=== PATIENT | male | born 1970 | race Caucasian/White ===

== ENCOUNTER 2020-09-20 23:56 | Inpatient (IN) | payer OTHER ==
[2020-09-21 00:26] VITALS: BMI 23.2
[2020-09-21] MEDS ORDERED: MAG HYDROX/AL HYDROX/SIMETH 30 ML UNIT-DOSE CUP PO PRN (00:29)
[2020-09-21] MEDS ORDERED: METHOCARBAMOL 500 MG TABLET PO PRN (00:29)
[2020-09-21] MEDS ORDERED: ACETAMINOPHEN 325 MG TABLET (FP) PO PRN ×2 (00:29)
[2020-09-21] MEDS ORDERED: MENTHOL/PHENOL 1 EACH UD MM PRN (00:29)
[2020-09-21] MEDS ORDERED: ONDANSETRON *ODT* 4 MG TABLET SL PRN (00:29)
[2020-09-21] MEDS ORDERED: IBUPROFEN 400 MG TABLET (FP) PO PRN (00:29)
[2020-09-21] MEDS ORDERED: MAGNESIUM HYDROX 2400MG/30ML ORAL SUSPENSION 30 ML CUP PO PRN (00:29)
[2020-09-21] MEDS ORDERED: BISMUTH SUBSALICYLATE 524 MG/30 ML PO PRN (00:29)
[2020-09-21] MEDS ORDERED: MAGNESIUM CITRATE 300 ML BOTTLE PO PRN (00:29)
[2020-09-21] MEDS ORDERED: diazePAM 5 MG TABLET PO PRN (00:30)
[2020-09-21] MEDS ORDERED: METOPROLOL TARTRATE 50 MG TABLET (FP) PO ONE (01:15)
[2020-09-21] MEDS: hydrOXYzine PAMOATE 25 MG CAPSULE (FP) PO PRN ×2 (01:41→10:18)
[2020-09-21] MEDS: diazePAM 5 MG TABLET PO SCH ×4 (06:18→22:23)
[2020-09-21] MEDS ORDERED: PRENATAL VITAMINS W/ FOLIC ACID TABLET (FP) PO SCH (10:00)
[2020-09-21 11:22] LABS: ALBUMIN 3.3 g/dl (3.4-5.0); HEMATOCRIT 47.6 % (35.4-49); HEMOGLOBIN 16.5 GM/dL (11.7-16.9); MCH 31.5 pg (25.7-33.7); MCHC 34.7 g/dl (32.0-35.9); MEAN CELL VOLUME 90.7 fl (80-96); MEAN PLT VOLUME 7.9 fl (7.5-11.1); PLATELET COUNT 120 10^3/uL (134-434); RBC 5.24 M/mm3 (4.00-5.60); RDW 15.2 % (11.9-15.9); WHITE BLOOD COUNT 7.3 K/mm3 (4.0-10.0)
[2020-09-21 11:24] LABS: BLOOD UREA NITROGEN 11.6 mg/dL (7-18); CALCIUM 8.5 mg/dL (8.5-10.1)
[2020-09-21 11:28] LABS: BILIRUBIN,TOTAL 1.2 mg/dL (0.2-1)
[2020-09-21 11:29] LABS: TOT PROT 6.4 g/dl (6.4-8.2)
[2020-09-21] MEDS ORDERED: POTASSIUM CHLORIDE ORAL LIQUID 20 MEQ/15 ML PO ONE (13:00)
[2020-09-21] MEDS ORDERED: POTASSIUM CHLORIDE ORAL LIQUID 20 MEQ/15 ML PO SCH (22:00)
[2020-09-21] MEDS ORDERED: MELATONIN 5 MG TABLETS PO SCH (22:00)
[2020-09-21] MEDS ORDERED: THIAMINE HCL 100 MG TABLET (FP) PO SCH (22:00)
[2020-09-22] MEDS ORDERED: diazePAM 5 MG TABLET PO SCH (06:00)
[2020-09-22 07:41] VITALS: BP 136/96; PULSE 76; TEMP 97
[2020-09-22 11:24] LABS: CALCIUM 8.6 mg/dL (8.5-10.1)
[2020-09-22 11:28] LABS: CREATININE 0.7 mg/dL (0.55-1.3)
[2020-09-22 11:29] LABS: BILIRUBIN,TOTAL 0.5 mg/dL (0.2-1)
[2020-09-22 11:34] LABS: TOT PROT 6.1 g/dl (6.4-8.2)
[2020-09-23] MEDS ORDERED: diazePAM 5 MG TABLET PO SCH (06:00)
[2020-09-24] MEDS ORDERED: diazePAM 5 MG TABLET PO ONE (06:00)
== END 2020-09-22 09:09 | disposition left against medical advice (07) | DRG 770 ==
LOC: YASAS 23:56 → Y3N 09-21 00:37
PROVIDERS: ADMIT Allergy & Immunology; ATTEND Allergy & Immunology
PROC: HZ2ZZZZ Detoxification Services for Substance Abuse Treatment (ICD-10-PCS; principal; 2020-09-21)
DX: F10.230 Alcohol dependence with withdrawal, uncomplicated (principal); F13.230 Sedative, hypnotic or anxiolytic dependence with withdrawal, uncomplicated; F17.210 Nicotine dependence, cigarettes, uncomplicated; E11.42 Type 2 diabetes mellitus with diabetic polyneuropathy; E87.6 Hypokalemia; E87.1 Hypo-osmolality and hyponatremia; I10 Essential (primary) hypertension; J45.909 Unspecified asthma, uncomplicated; R74.01 Elevation of levels of liver transaminase levels
CPT/HCPCS: 36415; 80053; 85027; 86780; C9803; U0003; U0005